=== PATIENT | female | born 1975 | race Caucasian/White ===

== ENCOUNTER 2017-01-13 10:23 | Emergency (ER) | payer MEDICAID ==
[~2017-01-13] VITALS: Ht 160 cm; Wt 92.5 kg
[2017-01-13 10:28] VITALS: Ht 160 cm; Wt 92.5 kg
[2017-01-13] MEDS ORDERED: NAPROXEN 500 MG TAB PO STA (11:12)
--- NOTE | 2017-01-13 11:55 | ERD ---
ER Documentation Chief Complaint Date/Time DATE: 01/13/17 TIME: 11:54 Chief Complaint RT ANKLE PAIN/SWELLING S/P FALL LAST NIGHT HPI 41-year-old female presents with right lateral posterior ankle pain status post tripping over a mop last night. Patient rates the pain 7 out of 10. She states that she has difficulty ambulating ROS All systems reviewed and are negative except as per history of present illness. Allergies Allergies: Coded Allergies: No Known Drug Allergy (Verified Allergy, Unknown, 03/09/08) PMhx/Soc History of Surgery: No Anesthesia Reaction: No Hx Neurological Disorder: No Hx Respiratory Disorders: No Hx Cardiac Disorders: No Hx Psychiatric Problems: No Hx Miscellaneous Medical Probl: No Hx Alcohol Use: No Hx Substance Use: No Hx Tobacco Use: No Smoking Status: Never smoker Physical Exam Vitals Vital Signs Date Time Temp Pulse Resp B/P Pulse Ox O2 Delivery O2 Flow Rate FiO2 01/13/17 10:28 98.1 96 16 136/76 97 Physical Exam Const: [] Head: Atraumatic Eyes: Normal Conjunctiva ENT: Normal External Ears, Nose and Mouth. Neck: Full range of motion..~ No meningismus. Resp: Clear to auscultation bilaterally Cardio: Regular rate and rhythm, no murmurs Abd: Soft, non tender, non distended. Normal bowel sounds Skin: No petechiae or rashes Back: No midline or flank tenderness Ext: Tender palpation over the right posterior and dorsal ankle, +2 pedal pulses Neur: Awake and alert Psych: Normal Mood and Affect Results 24 hrs Current Medications Medications (Trade) Dose Ordered Sig/Elzbieta Route PRN Reason Start Time Stop Time Status Last Admin Dose Admin Naproxen (Naprosyn) 500 mg ONCE STAT PO 01/13/17 11:12 01/13/17 11:13 DC 01/13/17 11:47 Procedures/MDM 41-year-old female presents with right ankle pain status post inversion mechanism injury tripping over a mop last night. This is likely due to a sprain. Low suspicion for fracture dislocation. Patient was given approximately ED and a prescription for outpatient. Patient was given crutches and Bryan bandage. An x-ray of the right ankle was done did not show any fracture dislocation. Patient is neurovascular intact pre-and posttreatment to be discharged home. Departure Diagnosis: Primary Impression: Ankle pain WILY HARVEY PA-C Jan 13, 2017 11:55
--- NOTE | 2017-01-13 12:06 | RADRPT ---
PROCEDURE: XR Ankle. CLINICAL INDICATION: Fall with pain TECHNIQUE: 3 views of the right ankle were performed. COMPARISON: None. FINDINGS: There is no acute fracture or dislocation. The ankle mortise is intact. There is no significant trudy int effusion. There is a small plantar calcaneal heel spur. There is mild soft tissue swelling with in the medial and lateral ankle. RPTAT: ZZ IMPRESSION: 1. No acute bony abnormality. 2. Mild soft tissue swelling around the ankle. .Clarita Fuchs MD, MD Date Time Electronically viewed and signed by .Clarita Fuchs MD, MD on 01/13/2017 12:06 .T/
[2017-01-13] MEDS ORDERED: NAPR-260 PO (12:11)
== END 2017-01-13 12:37 | disposition home or self-care (01) ==
LOC: FTE 10:23
DX: M25.571 Pain in right ankle and joints of right foot (principal)
CPT/HCPCS: 73610; Z7502; Z7610

== ENCOUNTER 2017-02-16 00:07 | Emergency (ER) | payer MEDICAID ==
[~2017-02-16] VITALS: Ht 162.6 cm; Wt 89.0 kg
[~2017-02-16 00:07] MED LIST: NAPR-260 PO
[2017-02-16 00:11] VITALS: Ht 162.6 cm; Wt 89.0 kg
[2017-02-16] MEDS ORDERED: ONDANSETRON 4 MG INJ IV STA (01:18)
[2017-02-16] MEDS ORDERED: morphine 4 MG/ML VIAL IV STA (01:18)
[2017-02-16] MEDS ORDERED: SOD CHLORIDE 0.9% 1,000 ML IV STA (01:18)
--- NOTE | 2017-02-16 01:57 | RADRPT ---
PROCEDURE: ULTRASOUND LIMITED ABDOMEN CLINICAL INDICATION: 41-year-old female with abdominal pain. TECHNIQUE: Multiple sonographic of the right upper quadrant of the abdomen were obtained. The imag es were reviewed on a PACS workstation. COMPARISON: None. FINDINGS: The pancreas is not well visualized secondary to overlying bowel gas. The liver displays normal echogenicity. The liver measures 15.8 cm in length. No evidence of intrah epatic biliary ductal dilatation is seen. The portal and hepatic veins are unremarkable. The gallbladder demonstrates no wall thickening, sludge, nor stones. No pericholecystic fluid is see n. The common bile duct measures 4.5 mm and is not dilated. The right kidney displays normal echogenicity. The right kidney measures 11.1 cm in maximal length. No caliectasis or hydronephrosis is seen. No free fluid is seen. IMPRESSION: Unremarkable right upper quadrant abdominal ultrasound. .Marek Madden MD, MD Date Time Electronically viewed and signed by .Marek Madden MD, on 02/16/2017 01:56 .M/
[2017-02-16 02:23] LABS: BASOPHIL # 0.1 10^3/ul (0.0-0.1); BASOPHILS % 0.3 % (0.0-2.0); EOSINOPHILS # 0.4 10^3/ul (0.0-0.5); EOSINOPHILS % 2.3 % (0.0-7.0); HEMATOCRIT 39.1 % (37.0-47.0); HEMOGLOBIN 13.5 g/dl (12.0-16.0); LYMPHOCYTES # 1.4 10^3/ul (0.8-2.9); LYMPHOCYTES % 9.4 % (15.0-51.0); MEAN CORPUSCULAR HEMOGLOBIN 32.4 pg (29.0-33.0); MEAN CORPUSCULAR HGB CONC 34.5 g/dl (32.0-37.0); MEAN CORPUSCULAR VOLUME 93.8 fl (82.0-101.0); MEAN PLATELET VOLUME 10.2 fl (7.4-10.4); MONOCYTE # 0.8 10^3/ul (0.3-0.9); MONOCYTES % 4.9 % (0.0-11.0); NEUTROPHIL # 12.7 10^3/ul (1.6-7.5); NEUTROPHILS % 82.7 % (39.0-77.0); PLATELET COUNT 283 10^3/UL (140-415); RED BLOOD COUNT 4.17 10^6/ul (4.20-5.40); RED CELL DISTRIBUTION WIDTH 12.4 % (11.5-14.5); WHITE BLOOD COUNT 15.3 10^3/ul (4.8-10.8)
[2017-02-16 02:48] LABS: ALBUMIN 4.8 g/dl (3.3-4.9); ALBUMIN/GLOBULIN RATIO 1.23; BILIRUBIN,INDIRECT 0.3 mg/dl (0-1.1); BILIRUBIN,TOTAL 0.3 mg/dl (0.2-1.3); CALCIUM 9.5 mg/dl (8.4-10.2); CREATININE 0.93 mg/dl (0.44-1.00); POTASSIUM 3.5 mmol/L (3.5-5.1); TOTAL PROTEIN 8.7 g/dl (6.1-8.1)
[2017-02-16 02:54] LABS: ADD UMIC YES; UR ASCORBIC ACID NEGATIVE (NEGATIVE); UR BILIRUBIN (Dip) NEGATIVE (NEGATIVE); UR BLOOD (Dip) 2+ mg/dL (NEGATIVE); UR CLARITY CLEAR (CLEAR); UR COLOR YELLOW (YELLOW); UR GLUCOSE (Dip) NEGATIVE (NEGATIVE); UR KETONES (Dip) NEGATIVE (NEGATIVE); UR LEUKOCYTE ESTERASE (Dip) NEGATIVE Leu/ul (NEGATIVE); UR NITRITE (Dip) NEGATIVE (NEGATIVE); UR RBC 7 /HPF (0-5); UR TOTAL PROTEIN (Dip) NEGATIVE (NEGATIVE); UR UROBILINOGEN (Dip) NEGATIVE (NEGATIVE)
--- NOTE | 2017-02-16 03:00 | ERD ---
ER Documentation Chief Complaint Chief Complaint mid abdominal pain/back pain x 2 hours HPI This is a 41-year-old female who comes in with submitted abdominal pain and back pain for 2 hours. Pain is mild to moderate intensity. Denies any fevers or chills. Denies any other current complaints. ROS All systems reviewed and are negative except as per history of present illness. Medications Home Meds Active Scripts Naproxen* (Naprosyn*) 500 Mg Tablet, 500 MG PO BID Y for PAIN AND/OR INFLAMMATION, #30 TAB Prov:WILY HARVEY PA-C 01/13/17 Allergies Allergies: Coded Allergies: No Known Drug Allergy (Verified Allergy, Unknown, 02/16/17) PMhx/Soc Medical and Surgical Hx: pt denies Medical Hx, pt denies Surgical Hx History of Surgery: No Anesthesia Reaction: No Hx Neurological Disorder: No Hx Respiratory Disorders: No Hx Cardiac Disorders: No Hx Psychiatric Problems: No Hx Miscellaneous Medical Probl: No Hx Alcohol Use: No Hx Substance Use: No Hx Tobacco Use: No Smoking Status: Never smoker Physical Exam Vitals Vital Signs Date Time Temp Pulse Resp B/P Pulse Ox O2 Delivery O2 Flow Rate FiO2 02/16/17 00:11 97.7 69 20 128/73 100 Physical Exam Const: [] Head: Atraumatic Eyes: Normal Conjunctiva ENT: Normal External Ears, Nose and Mouth. Neck: Full range of motion..~ No meningismus. Resp: Clear to auscultation bilaterally Cardio: Regular rate and rhythm, no murmurs Abd: Soft, non tender, non distended. Normal bowel sounds Skin: No petechiae or rashes Back: No midline or flank tenderness Ext: No cyanosis, or edema Neur: Awake and alert Psych: Normal Mood and Affect Result Diagram: 02/16/17 0142 Results 24 hrs Laboratory Tests Test 02/16/17 01:42 White Blood Count 15.310^3/ul Red Blood Count 4.1710^6/ul Hemoglobin 13.5g/dl Hematocrit 39.1% Mean Corpuscular Volume 93.8fl Mean Corpuscular Hemoglobin 32.4pg Mean Corpuscular Hemoglobin Concent 34.5g/dl Red Cell Distribution Width 12.4% Platelet Count 50558^3/UL Mean Platelet Volume 10.2fl Neutrophils % 82.7% Lymphocytes % 9.4% Monocytes % 4.9% Eosinophils % 2.3% Basophils % 0.3% Nucleated Red Blood Cells % 0.0/100WBC Neutrophils # 12.710^3/ul Lymphocytes # 1.410^3/ul Monocytes # 0.810^3/ul Eosinophils # 0.410^3/ul Basophils # 0.110^3/ul Nucleated Red Blood Cells # 0.010^3/ul Urine Color YELLOW Urine Clarity CLEAR Urine pH 5.0 Urine Specific [place] 1.020 Urine Ketones NEGATIVEmg/dL Urine Nitrite NEGATIVEmg/dL Urine Bilirubin NEGATIVEmg/dL Urine Urobilinogen NEGATIVEmg/dL Urine Leukocyte Esterase NEGATIVELeu/ul Urine Microscopic RBC 7/HPF Urine Microscopic WBC 1/HPF Urine Hemoglobin 2+mg/dL Urine Glucose NEGATIVEmg/dL Urine Total Protein NEGATIVEmg/dl Current Medications Medications (Trade) Dose Ordered Sig/Elzbieta Route PRN Reason Start Time Stop Time Status Last Admin Dose Admin Sodium Chloride (NS) 1,000 ml @ 1,000 mls/hr Q1H STAT IV 02/16/17 01:18 02/16/17 02:17 DC 02/16/17 02:00 Morphine Sulfate (morphine) 4 mg ONCE STAT IV 02/16/17 01:18 02/16/17 01:19 DC 02/16/17 02:00 Ondansetron HCl (Zofran Inj) 4 mg ONCE STAT IV 02/16/17 01:18 02/16/17 01:19 DC 02/16/17 02:00 Procedures/MDM Medical decision-making: Very pleasant patient with epigastric abdominal pain. No evidence of gallstones. At this point clinically stable for outpatient management. Pain is resolved. Patient will be discharged from a trial of outpatient management asked to follow-up here in 8 hours for serial abdominal exams. Differential included pancreatitis, cholecystitis, choledocholithiasis, biliary disease, gastritis. At this time patient does not seem to be around any of these diagnoses. Patient will be discharged home to follow-up Departure Diagnosis: Primary Impression: Abdominal pain Abdominal location: epigastric Qualified Code: R10.13 - Epigastric pain Condition: Stable VIDA HORN Feb 16, 2017 03:00
[2017-02-16] MEDS ORDERED: SUCR1TAB56 PO (03:59)
[2017-02-16] MEDS ORDERED: RANI150T9 PO (03:59)
[2017-02-16] MEDS ORDERED: ONDA4TAB14 PO (03:59)
[2017-02-16 04:32] VITALS: BP 122/68; PULSE 68; RESP 16; TEMP 98.3
== END 2017-02-16 04:33 | disposition home or self-care (01) ==
LOC: E/R 00:07
DX: R10.13 Epigastric pain (principal)
CPT/HCPCS: 36415; 76705; 80053; 81001; 83690; 85025; 96374; 96375; J2270; J2405; J7030; Z7502